=== PATIENT | male | born 1985 | race Caucasian/White ===

== ENCOUNTER 2021-06-12 09:09 | Emergency (ER) | payer OTHER, SELFPAY ==
--- NOTE | 2021-06-12 09:18 | ED.URI ---
HPI - URI/Sore Throat General Chief Complaint: Upper Respiratory Infection Stated Complaint: sore throat Time Seen by Provider: 06/12/21 09:18 Source: patient and RN notes reviewed History of Present Illness HPI Narrative: Patient is a 36-year-old male who presents the urgent care with complaints of a sore throat since Friday. Patient denies any fever, chills, nausea, vomiting, headache. Patient is not taking anything [id number] for his symptoms. Patient denies of any known exposures to strep or influenza. Patient did have Covid in April and has not been Covid vaccinated. No other acute complaints. No acute distress noted. Patient aware of the plan of care. Some parts of this dictation were generated by voice recognition software and may contain typographical and/or grammatical inaccuracies. Related Data Home Medications Medication Instructions Recorded Confirmed No Home Medications 06/12/21 06/12/21 Allergies Allergy/AdvReac Type Severity Reaction Status Date / Time No Known Allergies Allergy Verified 06/12/21 09:31 Review of Systems Review of Systems: CONSTITUTIONAL: Denies fever, chills, or sweats. EYES: Denies visual changes, redness, or discharge. ENT: Denies rhinorrhea, congestion, otalgia. Reports of sore throat CARDIOVASCULAR: Denies chest pain, palpitations, or edema. RESPIRATORY: Denies cough or dyspnea. GASTROINTESTINAL: Denies abdominal pain, nausea, vomiting, or diarrhea. GENITOURINARY: Denies dysuria or hematuria. SKIN: Denies rash or itching. MUSCULOSKELETAL: Denies back pain, joint pain, or myalgia. NEUROLOGIC: Denies headache, numbness, or weakness. All other systems reviewed are negative, except as documented in HPI. PMFSH Comments At the time of my signature, I reviewed and agree with the nursing past medical, surgical, social, and family history. There is no relevant family history pertinent to the patient complaint. Exam Narrative: GENERAL: This is a well-nourished, well-developed patient, in no apparent distress. HEAD: normocephalic, atraumatic. EYES: PERRL. Sclera clear/white. Vision is grossly intact. EARS: External ears normal, auditory canals clear and without drainage, TMs normal without perforation. Hearing grossly intact. NOSE: External nose normal with no obvious nasal discharge, nares without redness, no rhinorrhea. THROAT: Mucous membranes moist. Moderate erythema noted posterior pharynx without exudate or ulceration. No tonsillar edema. NECK: Neck supple, mild tender right submandibular lymphadenopathy CARDIOVASCULAR: Regular rate and rhythm without murmurs, gallops, or rubs. RESPIRATORY: Clear to auscultation. Breath sounds equal bilaterally. No wheezes, rales, or rhonchi. SKIN: warm, intact with no suspicious lesions or rash, good texture and turgor. NEURO: awake, alert, and oriented to person, place and time. There were no obvious focal neurologic abnormalities. EXTREMITIES: No clubbing, cyanosis, or edema. Course Course Level of Care: Express Care Visit Vital Signs Vital signs: Vital Signs Temperature 96.9 F L 06/12/21 09:20 Pulse Rate 70 06/12/21 09:20 Respiratory Rate 18 06/12/21 09:20 Blood Pressure 127/76 06/12/21 09:20 Pulse Oximetry 99 06/12/21 09:20 Temperature 96.9 F L 06/12/21 09:20 Pulse Rate 70 06/12/21 09:20 Respiratory Rate 18 06/12/21 09:20 Blood Pressure 127/76 06/12/21 09:20 Pulse Oximetry 99 06/12/21 09:20 Reviewed MDM - URI/Sore Throat MDM Narrative Medical decision making narrative: Reviewed lab results with the patient. He is aware that strep swab was negative. Educated patient on culture we will call within 72 hours if culture is positive and antibiotics necessary. Your symptoms are viral and should be treated with [id number] medication such as Benadryl/Claritin/Zyrtec in conjunction with Flonase nasal spray. Lymph node swelling is typical for viral infections and you may use Tylenol/ibuprofen
[2021-06-12 09:20] VITALS: BP 127/76; PULSE 70; RESP 18; TEMP 36.1; O2SAT 99
== END 2021-06-12 10:35 | disposition home or self-care (01) ==
PROVIDERS: Emergency Provider Nurse Practitioner Family
DX: J02.9 Acute pharyngitis, unspecified (principal)
CPT/HCPCS: 87081; 87880; 99213; G0463